=== PATIENT | male | born 1995 | race Caucasian/White ===

== ENCOUNTER 2018-03-14 02:17 | Emergency (ER) | payer MEDICAID ==
[2018-03-14 02:23] VITALS: PULSE 78; RESP 18; TEMP 98.5
[2018-03-14] MEDS ORDERED: ACETAMINOPHEN TAB 500 MG TAB PO STA (02:55)
[2018-03-14] MEDS ORDERED: PENICILLIN VK 500MG STARTER 4 TAB BTL PO STA (02:57)
--- NOTE | 2018-03-14 02:57 | ED ---
General Adult HPI - General Source: patient, RN notes reviewed Mode of arrival: ambulatory Limitations: no limitations <Jacques Colon P - Last Filed: 03/14/18 03:21> <Saba Mcclelland P - Last Filed: 03/14/18 03:58> - General Chief complaint: Dental/Oral Stated complaint: DENTAL PAIN Time Seen by Provider: 03/14/18 02:27 - History of Present Illness Initial comments: 22-year-old male presents to the emergency department for chief complaint of dental pain 4 days. Patient states he has had a root canal on that tooth previously. Patient states the pain as a 10 out of 10. Patient denies any difficulty opening or closing his mouth. He denies any neck stiffness. He denies any fevers or chills at home. Patient states he has an appointment with the dentist later today but wanted to be evaluated before that. He states he has been taking Advil and has not been helping with the pain.Patient has no other complaints at this time including shortness of breath, chest pain, abdominal pain, nausea or vomiting, headache, or visual changes. (Jacques Colon) - Related Data Previous Rx's Medication Instructions Recorded Penicillin V Potassium [Pen Vee K] 500 mg PO Q6H 10 Days tablet 03/14/18 Allergies Allergy/AdvReac Type Severity Reaction Status Date / Time No Known Allergies Allergy Verified 03/14/18 02:23 Review of Systems ROS Other: All systems not noted in ROS Statement are negative. <Jacques Colon P - Last Filed: 03/14/18 03:21> ROS Other: All systems not noted in ROS Statement are negative. <Saba Mcclelland P - Last Filed: 03/14/18 03:58> ROS Statement: Those systems with pertinent positive or pertinent negative responses have been documented in the HPI. Past Medical History Past Medical History: No Reported History History of Any Multi-Drug Resistant Organisms: None Reported Past Surgical History: No Surgical Hx Reported Past Psychological History: No Psychological Hx Reported Smoking Status: Current every day smoker Past Alcohol Use History: Occasional Past Drug Use History: None Reported <Jacques Colon - Last Filed: 03/14/18 03:21> General Exam Limitations: no limitations General appearance: alert, in no apparent distress Head exam: Present: atraumatic, normocephalic, normal inspection Eye exam: Present: normal appearance, PERRL, EOMI. Absent: scleral icterus, conjunctival injection, periorbital swelling ENT exam: Present: mucous membranes moist, TM's normal bilaterally, normal external ear exam. Absent: normal oropharynx (Patient is generally poor dentition. Patient has tenderness to tooth 16 with percussion using tongue blade, no evidence of abscess noted with palpation of the gumline.) Neck exam: Present: normal inspection. Absent: tenderness, meningismus, lymphadenopathy Respiratory exam: Present: normal lung sounds bilaterally. Absent: respiratory distress, wheezes, rales, rhonchi, stridor Cardiovascular Exam: Present: regular rate, normal rhythm, normal heart sounds. Absent: systolic murmur, diastolic murmur, rubs, gallop, clicks Neurological exam: Present: alert, oriented X3, CN II-XII intact Psychiatric exam: Present: normal affect, normal mood <Jacques Colon P - Last Filed: 03/14/18 03:21> Vital Signs 03/14/18 03/14/18 02:21 03:05 Temperature 98.5 F Pulse Rate 78 Respiratory 18 Rate Blood Pressure 160/116 148/91 O2 Sat by Pulse 100 Oximetry Medical Decision Making <Jacques Colon P - Last Filed: 03/14/18 03:21> <Saba Mcclelland P - Last Filed: 03/14/18 03:58> - Medical Decision Making 22-year-old male presents to the emergency department for a chief complaint of dental pain times 4 days. Patient states the pain worsened tonight. Patient has been taking Advil for pain. Exam there is no evidence of abscess the patient does have tenderness to percussion of tooth 16. He has poor dentition in general. No evidence of abscess. I did offer patient a nerve block which she refused at this time. I did give patient Tylenol as well as an ice pack. He will continue Motrin and Tylenol for pain. He was also given a starter pack of penicillin as well as a prescription. Patient has an appointment with his dentist later today that he will attend. Patient aware to return immediately to the emergency department if he has any worsening symptoms. (Jacques Colon) I was available for consultation in the emergency department. The history and physical exam were done by the midlevel provider. I was consulted for this patient's care. I reviewed the case with the midlevel provider and based on their presentation of the patient, I agree with the assessment, medical decision making and plan of care as documented. (Saba Mcclelland) Disposition Is patient prescribed a controlled substance at d/c from ED?: No Time of Disposition: 02:56 <Jacques Colon P - Last Filed: 03/14/18 03:21> <Saba Mcclelland P - Last Filed: 03/14/18 03:58> Clinical Impression: Pain, dental Disposition: HOME SELF-CARE Condition: Good Instructions: Toothache (ED) Additional Instructions: Please take antibiotic as directed. Please follow-up with dentist tomorrow at your scheduled appointment. Please ice the area and take Motrin and Tylenol for pain. Please return to the emergency department immediately if you have any worsening symptoms. Prescriptions: Penicillin V Potassium [Pen Vee K] 500 mg PO Q6H 10 Days tablet Referrals: Marie Kraus MD [STAFF PHYSICIAN] - 1-2 days
[2018-03-14 03:06] VITALS: BP 148/91
== END 2018-03-14 03:10 | disposition home or self-care (01) ==
LOC: EC 02:17
DX: K08.89 Other specified disorders of teeth and supporting structures (principal); F17.200 Nicotine dependence, unspecified, uncomplicated
CPT/HCPCS: 99282